=== PATIENT | male | born 1995 | race Two or more races ===

== ENCOUNTER 2017-02-06 14:02 | Emergency (ER) | payer BC ==
[~2017-02-06] VITALS: Ht 170.2 cm; Wt 68.0 kg
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
--- NOTE | 2017-02-06 14:58 | NUR ---
DR FUENTES AT BEDSIDE FOR EVAL
--- NOTE | 2017-02-06 15:16 | NUR ---
PT TAKENT TO CT VIA WC
[2017-02-06 16:03] VITALS: BP 137/80
== END 2017-02-06 16:04 | disposition home or self-care (01) ==
LOC: ER 14:06
DX: S13.4XXA Sprain of ligaments of cervical spine, initial encounter (principal); R51 Headache; F17.200 Nicotine dependence, unspecified, uncomplicated; Z90.89 Acquired absence of other organs; V43.52XA Car driver injured in collision with other type car in traffic accident, initial encounter; Y93.89 Activity, other specified; Y92.488 Other paved roadways as the place of occurrence of the external cause; Y99.8 Other external cause status
CPT/HCPCS: 70450-TC; 72125-TC; A4606; Z7610